=== PATIENT | female | born 1955 | race Caucasian/White ===

== ENCOUNTER 2019-06-24 13:39 | Observation (INO) ==
[2019-06-24] MEDS ORDERED: 0.9 % SODIUM CHLORIDE 1,000 ML IV ONE (14:05)
[2019-06-24] MEDS ORDERED: KETOROLAC 30 MG/ML VIAL IV ONE (14:05)
[2019-06-24] MEDS ORDERED: ONDANSETRON 4 MG ODT TABLET SL ONE (14:05)
--- NOTE | 2019-06-24 15:05 | Emergency Department Note ---
Abdominal Pain HPI - General Chief Complaint: Flank Pain Stated Complaint: Flank pain Time Seen by Provider: 06/24/19 14:05 Source: patient, family Mode of arrival: wheelchair Limitations: no limitations - History of Present Illness HPI Narrative: 63-year old patient presenting to the [facility] emergency department with a chief complaint of abdominal pain. Patient reports the pain is acute. Patient has had symptoms for several hours now. Patient noting pain is sharp. Patient reporting pain is severe 10/10. Patient with exacerbating factors of time. Patient with ameliorating factors of nothing. Patient with associated symptoms of nausea. Patient without associated symptoms of vomiting, diarrhea, decreased appetite, fever, blood in stool, hematemesis, constipation, dysuria, frequency, hematuria, weight loss, cough, shortness of breath, orthopnea, exertional component. - Related Data Home Medications Medication Instructions Recorded Confirmed Advil mg PRN 06/24/19 Allergies Allergy/AdvReac Type Severity Reaction Status Date / Time No Known Drug Allergies Allergy Verified 06/24/19 13:39 Review of Systems All systems ED: reviewed and negative except as stated. Abdominal Pain PMH - Past Medical History PMF Narrative: All Active Problems (Last Updated 12/07/18 @ 06:06 by Tanner Palacios DO) Pain, dental (Acute) Broken tooth (Acute) Pyelonephritis of right kidney (Acute) Hypertension, essential (Chronic) Asthma (Chronic) Chronic pain (Chronic) Scoliosis (Chronic) Depression (Chronic) LEAH (stress urinary incontinence, female) (Chronic) Rectocele (Chronic) Cystocele (Chronic) Muscle pain (Chronic) Postsurgical menopause (Chronic) Postmenopausal atrophic vaginitis (Chronic) Medical history: Reports: kidney stones, other (neck and back scoliosis, kidney infections) Psychiatric history: Denies: anxiety, depression - Social History Smoking status: Former smoker Alcohol use: Reports: Occasionally Drug use: Reports: none, marijuana Physical Exam Limitations: no limitations Course Vital Signs Temperature 97.9 F 06/24/19 13:39 Pulse Rate 76 06/24/19 13:39 Respiratory Rate 20 06/24/19 13:39 Blood Pressure 158/101 06/24/19 13:39 Pulse Oximetry (%) 100 06/24/19 13:39 Temperature 97.7 F 06/24/19 22:21 Pulse Rate 86 06/24/19 22:21 Respiratory Rate 16 06/24/19 22:21 Blood Pressure 124/84 06/24/19 22:21 Pulse Oximetry (%) 98 06/24/19 22:21 Abdominal Pain - MDM Narrative Medical decision making narrative: Initial work-up for this issue included consideration for the following laboratory evaluation CBC, CMP, lipase, urinalysis as well as imaging. Differential diagnosis considered included: Obstruction, perforation, mesenteric ischemia, Crohn's disease, ulcerative colitis, viral gastroenteritis, spontaneous bacterial peritonitis, ketoacidosis, adrenal insufficiency, foodborne illness, IBS, constipation, AAA, abdominal compartment syndrome, abdominal migraine, chronic abdominal pain, colonic pseudoobstruction, zoster, hypercalcemia, hypothyroidism, appendicitis, diverticulitis, not nephrolithiasis, pyelonephritis, acute urinary retention, cystitis, colitis, pelvic inflammatory disease, ovarian torsion, ruptured ovarian cyst, endometri osis, endometritis, GC/chlamydia, fibroids, ovarian hyperstimulation, malignancy, salpingitis, tubo-ovarian abscess. Given patient's pain level it was my medical opinion that we should have a diagnosis prior to proceeding with aggressive pain control. CT scan demonstrating a kidney stone on the left 7 x 9 mm discussed case with urology given patient's ongoing pain after Dilaudid Toradol fluids consensus medical pain is to admit for ongoing pain control and likely stone removal. - Lab Data Result diagrams: 06/24/19 15:48 06/24/19 15:48 Lab Results 06/24/19 06/24/19 06/24/19 Range/Units 15:48 15:48 15:48 WBC 6.2 (4.5-11.0) K/mcL RBC 5.06 (4.00-5.20) M/mcL Hgb 11.9 L (12.0-15.0) g/dL Hct 37.6 (36.0-48.0) % MCV 74.3 L (80.0-100.0) fL MCH 23.5 L (26.0-34.0) pg MCHC 31.6 (31.0-36.0) g/dL RDW 15.5 H (11.5-14.5) % Plt Count 286 (140-440) K/mcL MPV 8.6 (7.4-10.4) fL Gran % 65.0 (38.0-78.0) % Lymph % (Auto) 25.0 (15.5-49.0) % Adams % (Auto) 8.3 (1.0-12.0) % Eos % (Auto) 1.1 (0.0-7.0) % Baso % (Auto) 0.6 (0.0-2.0) % Gran # 4.1 (1.8-8.0) K/mcL Lymph # (Auto) 1.5 (1.5-4.8) K/mcL Adams # (Auto) 0.5 (0.1-0.9) K/mcL Eos # (Auto) 0.1 (0.0-0.7) K/mcL Baso # (Auto) 0 (0.0-0.3) K/mcL Sodium 140 (133-145) mmol/L Potassium 4.0 (3.3-5.1) mmol/L Chloride 104 (96-108) mmol/L Carbon Dioxide 23 (22-30) mmol/L Anion Gap 13.0 (8-16) BUN 15 (8-23) mg/dl Creatinine 0.9 (0.6-1.1) mg/dl GFR Calculation 68 Glucose 97 (70-105) mg/dL Calcium 9.2 (8.6-10.4) mg/dl Total Bilirubin 0.6 (0.0-1.0) mg/dL AST 30 (0-37) U/l ALT 23 (0-40) U/l Alkaline Phosphatase 123 H (39-117) U/L Total Protein 7.3 (5.9-8.4) gm/dL Albumin 4.2 (3.2-5.2) gm/dL Globulin 3.1 (2.2-3.7) gm/dL Albumin/Globulin Ratio 1.4 (1.0-2.3) Urine Color Straw Urine Appearance Clear Urine pH 9.0 (5.0-9.0) Ur Specific [place] 1.009 (1.000-1.035) Urine Protein Neg (NEG) mg/dL Urine Glucose (UA) Negative (NEG) mg/dL Urine Ketones 5/tr A (NEG) mg/dL Urine Occult Blood >=1.0 A (<0.03) mg/dL Urine Nitrate Neg (NEG) Urine Bilirubin Neg (NEG) mg/dL Urine Urobilinogen Neg (NEG) mg/dL Ur Leukocyte Esterase Neg (NEG) /uL Urine RBC > 182 H (0-1) /hpf Urine WBC 4 (0-4) /hpf Ur Squamous Epith Cells 1 (0-4) /hpf Urine Bacteria 0 (0) /hpf Urine Mucus Few (0) /hpf Ur Culture Indicated? No Disposition Pt seen by [facility]URNER/PA only: No Clinical Impression: Kidney stone Abdominal pain Qualifiers: Abdominal location: left lower quadrant Qualified Code(s): R10.32 - Left lower quadrant pain Disposition: Xfer As Outpt/Obs ([facility]) Condition: Good
[2019-06-24] MEDS ORDERED: HYDROmorphone 2 MG/ML VIAL IV SCH (15:30)
[2019-06-24] MEDS ORDERED: PROMETHAZINE 25 MG/ML VIAL IV ONE (15:30)
--- NOTE | 2019-06-24 15:32 | Cat Scan Report ---
History: Left flank pain and kidney stones TECHNIQUE: The patient was imaged without oral or intravenous contrast from the diaphragm to the symphysis pubis. Sagittal and coronal reformats were created. Radiation exposure was limited using dose reduction technology. FINDINGS: There is a moderate size hiatus hernia. Evaluation the abdominal organs without contrast is somewhat limited. No abnormality is seen within the liver, spleen, gallbladder, pancreas or adrenals. The pancreas is difficult to evaluate due to lack of intraperitoneal fat and no contrast. There is moderate hydronephrosis in left kidney due to a 7 x 9 mm calculus in the left ureter at the level of the left SI joint. Distal to the stone the left ureter is decompressed. There is also a 5 x 6 mm calculus in the lower pole calyx of left kidney. The right kidney is normal with no stone or hydronephrosis. There is fecal impaction throughout the colon. Small bowel is nondilated. Is no evidence of diverticulitis. No free fluid mass or abscess are seen within the abdomen or pelvis. There is a moderately severe levoscoliotic curvature at the thoracolumbar junction. Degenerative disc disease and arthritis are present throughout the visualized spine. IMPRESSION: 7 x 9 mm calculus in the distal third of the left ureter causing moderate hydronephrosis Dr. Del Toro was called with the results Interpreted and Authenticated by: Galo Gomez 06/24/19
[2019-06-24 16:11] LABS: ALT/SGPT 23 U/l (0-40); AST/SGOT 30 U/l (0-37); Albumin 4.2 gm/dL (3.2-5.2); Albumin/Globulin Ratio 1.4 (1.0-2.3); Alkaline Phosphatase 123 U/L (39-117); Bilirubin,Total 0.6 mg/dL (0.0-1.0); Blood Urea Nitrogen 15 mg/dl (8-23); Calcium 9.2 mg/dl (8.6-10.4); Carbon Dioxide 23 mmol/L (22-30); Chloride 104 mmol/L (96-108); Globulin 3.1 gm/dL (2.2-3.7); Glomerular Filtration Rate 68; Glucose 97 mg/dL (70-105)
[2019-06-24 16:33] LABS: Basophils # (Auto) 0 K/mcL (0.0-0.3); Basophils % (Auto) 0.6 % (0.0-2.0); Eosinophils # (Auto) 0.1 K/mcL (0.0-0.7); Eosinophils % (Auto) 1.1 % (0.0-7.0); Hematocrit 37.6 % (36.0-48.0); Hemoglobin 11.9 g/dL (12.0-15.0); Lymphocytes # (Auto) 1.5 K/mcL (1.5-4.8); Mean Cell Volume 74.3 fL (80.0-100.0); Mean Corpuscular HGB Conc 31.6 g/dL (31.0-36.0); Mean Platelet Volume 8.6 fL (7.4-10.4); Monocytes # (Auto) 0.5 K/mcL (0.1-0.9); Monocytes % (Auto) 8.3 % (1.0-12.0); Platelet Count 286 K/mcL (140-440); RBC 5.06 M/mcL (4.00-5.20); Red Cell Distribution Width 15.5 % (11.5-14.5); WBC 6.2 K/mcL (4.5-11.0)
[2019-06-24 16:36] LABS: Appearance,Urine CLEAR; Bacteria,Urine 0 /hpf (0); Bilirubin,Urine NEG (NEG); Color,Urine STRAW; Culture Indicated,Urine NO; Glucose,Urine (UA) NEGATIVE (NEG); Ketones,Urine 5/TR mg/dL (NEG); Leukocyte Esterase,Urine NEG /uL (NEG); Mucus,Urine FEW /hpf (0); Nitrate,Urine NEG (NEG); Protein,Urine NEG (NEG); Specific Gravity,Urine 1.009 (1.000-1.035); Urine Blood >=1.0 mg/dL (<0.03); Urine RBC > 182 /hpf (0-1); Urine Squamous Epithelial Cell 1 /hpf (0-4); Urine WBC 4 /hpf (0-4); Urobilinogen,Urine NEG (NEG)
[2019-06-24] MEDS ORDERED: oxyCODONE (PP) 5MG TABLET (#4) PO ONE (17:16)
[2019-06-24] MEDS ORDERED: HYDROmorphone 2 MG/ML VIAL IV ONE (20:19)
[2019-06-25] MEDS: ONDANSETRON 4 MG/2 ML VIAL IV PRN ×2 (01:27→08:42)
[2019-06-25] MEDS ORDERED: ceFAZolin 2 GM in DEXTROSE 5% IN WATER 50 ML IV SCH (06:45)
[2019-06-25] MEDS ORDERED: DEXTROSE 5%-1/2NS W/10MEQ KCL 1,000 ML IV SCH (07:00)
--- NOTE | 2019-06-25 07:50 | History and Physical Report ---
DATE OF ADMISSION: 06/24/2019 HISTORY OF PRESENT ILLNESS: The patient is a 63-year-old lady who I have seen in the past for a left renal stone. This was done in December of 2017. She did well until recently and 3 days ago she had sudden onset of left flank pain. This was similar to the pain that she had before. She had no inkling that there was a stone. She denies any pain with urination, no frequency or urgency. She was seen in the ER where a CT scan was obtained which showed on the left side a 7.7 x 9 mm stone in the distal left ureter and a 5 x 6 in the lower pole of the left kidney. She was admitted for pain control and I have been asked to evaluate her. PAST MEDICAL HISTORY: Significant for hypertension, scoliosis, depression, stress incontinence and menopause. PAST SURGICAL HISTORY: Ureteroscopy and stone removal. ALLERGIES: None. CURRENT MEDICATIONS: Advil. FAMILY HISTORY: Noncontributory. SOCIAL HISTORY: Used to smoke, occasional alcohol. REVIEW OF SYSTEMS: CARDIAC: Denies any chest pain. RESPIRATORY: No wheezing, coughing, or asthma. PSYCHOLOGICAL: Slight depression. MUSCULOSKELETAL: Positive scoliosis. The rest of a 14-point review of systems is negative. PHYSICAL EXAMINATION: GENERAL: This is a pleasant lady in no apparent distress. She just received a Dilaudid injection. She is lying in bed. HEENT: Atraumatic, normocephalic. Extraocular movements are intact. Pupils equal, reactive to light and accommodation. No thyromegaly is noted. No mucosal lesions. NECK: Supple. LUNGS: Clear to auscultation. HEART: Regular rate and rhythm. ABDOMEN: Soft. Positive left CVA tenderness that extends down to the groin. GENITOURINARY: Deferred. EXTREMITIES: Without clubbing, cyanosis, or edema. NEUROLOGIC: Cranial nerves II-XII intact. IMPRESSION AND PLAN: Patient with a distal left ureteral stone and also a renal stone. She was admitted for pain control and is doing better at this point. I have talked to her about the options again of watchful waiting, ureteroscopy or extracorporeal lithotripsy and she desires ureteroscopy. I have gone over the procedure with her and complications including bleeding, infection, pain, need for a stent, and perforation, and she understands. Surgery will be scheduled today. A full PARQ discussion was held. MIAN:[email or web address] Job ID: [id number] Doc ID: [id number] Bassam Day MD
[2019-06-25] MEDS ORDERED: HYDROmorphone 2 MG/ML VIAL IV PRN ×2 (09:30→13:30)
[2019-06-25] MEDS ORDERED: IPRATROPIUM/ALBUTEROL 3 ML AMPUL.NEB NEB PRN ×2 (11:00→13:30)
[2019-06-25] MEDS ORDERED: SCOPOLAMINE 1 PATCH PATCH TOPICAL PRN (11:00)
[2019-06-25] MEDS ORDERED: MEPERIDINE 25 MG/ML SYRINGE IV PRN (13:30)
[2019-06-25] MEDS ORDERED: LACTATED RINGERS 1,000 ML IV SCH (13:30)
[2019-06-25] MEDS ORDERED: KETOROLAC 30 MG/ML VIAL IV PRN (13:30)
[2019-06-25] MEDS ORDERED: ACETAMINOPHEN 1,000 MG/100 ML BOTTLE IV ONE (13:30)
[2019-06-25] MEDS ORDERED: fentaNYL 100 MCG/2 ML VIAL IV PRN (13:30)
[2019-06-25] MEDS ORDERED: DEXAMETHASONE 10 MG/ML VIAL IV ONE (13:45)
[2019-06-25] MEDS ORDERED: PROPOFOL 200 MG/20 ML VIAL IV ONE (13:45)
[2019-06-25] MEDS ORDERED: ONDANSETRON 4 MG/2 ML VIAL IV ONE (13:45)
[2019-06-25] MEDS ORDERED: GLYCOPYRROLATE 0.2 MG/ML VIAL IV ONE (13:45)
[2019-06-25] MEDS ORDERED: KETAMINE 100 MG/ML ML IV ONE (13:45)
[2019-06-25] MEDS ORDERED: LIDOCAINE HCL/PF 100 MG/5 ML SYRINGE IV ONE (13:45)
[2019-06-25] MEDS ORDERED: fentaNYL 100 MCG/2 ML VIAL IV ONE (13:45)
[2019-06-25] MEDS ORDERED: IOPAMIDOL 100 ML BOTTLE IJ ONE (14:21)
[2019-06-25] MEDS ORDERED: oxyCODONE/APAP 5/325MG TABLET PO PRN (15:00)
[2019-06-25] MEDS ORDERED: IBUPROFEN 200 MG TABLET PO PRN (15:02)
[2019-06-25] MEDS ORDERED: ACETAMINOPHEN 500 MG TABLET PO PRN (15:02)
--- NOTE | 2019-06-25 15:04 | Brief Operative Note ---
Date of procedure: 06/25/19 Pre-op diagnosis: left ureteral, renal stone Post-op diagnosis: same Procedure: ureteroscopy laser lithotripsy Grafts/Implants: Yes (ureteral stent) Anesthesia: GETA Findings: see note Complications: none Surgeon: Bassam Day Specimens Removed/Pathology: none sent Condition: stable
--- NOTE | 2019-06-25 15:05 | Discharge Plan ---
Discharge Plan - Patient/Caregiver Discharge Instructions Activity: increase activity as tolerated Diet: Regular Diet Additional Instructions: remove stent on saturday am - Follow up Plan Follow up with: No,PCP [Primary Care Provider] - Disposition: Home, Self-Care Prognosis: Good Rehab Potential: Good Overall status at discharge: patient is back to baseline
--- NOTE | 2019-06-25 15:18 | Operative Note ---
DATE OF OPERATION: 06/24/2019 PREOPERATIVE DIAGNOSES: Ureteral stone and renal stone. POSTOPERATIVE DIAGNOSES: Ureteral stone and renal stone. PROCEDURE: Ureteroscopy with laser lithotripsy of ureteral stone and removal of renal stone with ureteroscopy and stent placement. SURGEON: Bassam Day M.D. INDICATION: The patient is a 63-year-old lady who has a history of stones. Yesterday she was admitted to the hospital because of severe pain, and she presents now for treatment. She did have stones in the left kidney and ureter. PROCEDURE: The patient was identified and consent was signed. She was given general anesthesia, placed in lithotomy position, prepped and draped in standard fashion. Cystourethroscopy was performed. Orifices were in their normal position. She did have a cystocele. We were able to pass the wire, and the stone was in the distal ureter. We were able to pass the semi-rigid ureteroscope and were able to find the stone. We broke this up into multiple fragments with the holmium laser, and these were sent to Pathology. While inspecting the ureter, it was noted that she did have a duplicated system, and her renal stone was in the lower duplicated system. We were then able to pass the flexible ureteroscope up and see the stone, and finally we were able to grasp this and bring this down without difficulty. The wire was re-placed and a 6 x 24 stent was then placed which showed a good curl in the kidney and the bladder. The string was left attached. She will remove this on her own. Her bladder was drained. She was awoken and taken to the recovery room in stable condition. She tolerated the procedure well. MIAN:mike Job ID: [id number] Doc ID: [id number] Bassam Day MD
--- NOTE | 2019-06-25 15:47 | XRay Report ---
HISTORY: Left ureteral calculus with moderate hydronephrosis FINDINGS: The procedure was performed by Dr. Anders. The cystoscope was inserted into the bladder. Left ureter was cannulated. Guidewire and catheter were inserted into the left renal pelvis. Contrast was injected. There is incomplete filling of the left renal collecting system. The stone seen in the lower third of the left ureter on yesterday's CT scan is not clearly identified on today's study. A double pigtail ureteral stent was inserted. The proximal end is in the region of the left renal pelvis and the distal in is in the lower pelvis in the region of the bladder. 5.9 minutes of fluoroscopy time was used. IMPRESSION: Successful insertion of a stent into the left ureter Interpreted and Authenticated by: Galo Gomez 06/25/19
[2019-06-25] MEDS ORDERED: 0.9 % SODIUM CHLORIDE 10 ML SYRINGE IV SCH (22:00)
[2019-06-26] MEDS ORDERED: FLU VACC QS2019-20(6MOS UP)/PF 60 MCG/0.5 ML SYRINGE IM ONE (10:00)
[2019-06-26] MEDS ORDERED: PNEUMOCOCCAL 23-VAL P-SAC VAC 0.5 ML SYRINGE IM ONE (10:00)
--- NOTE | 2019-06-27 15:08 | Surgical Pathology Report ---
HISTOLOGY SPECIMEN MICROSCOPIC DIAGNOSIS MINERAL MATERIAL, LEFT RENAL, EXTRACTION: -- CALCULI (GROSS DIAGNOSIS), SUBMITTED FOR CHEMICAL ANALYSIS. (EBD:adj) PROCEDURAL IMPRESSION Stones. GROSS DESCRIPTION Received without fixative designated as left renal stones, are three possible stone fragments in aggregate 1 x 0.3 x 0.5 cm. Gross only, no sections taken. (SCB:adj) Electronically Signed by: Leora Tovar M.D.
[2019-07-06 10:16] LABS: Calculus Weight 0.155 g; Specimen Source NOT GIVEN
== END 2019-06-25 19:15 | disposition home or self-care (01) ==
LOC: ED 13:39 → MEDSUR 22:03 → INTOOBSV 22:03 → MEDSUR 22:04